=== PATIENT | female | born 1935 | race Hispanic/Latino ===

== ENCOUNTER 2018-01-08 04:24 | Inpatient (IN) | payer MEDICARE ==
--- NOTE | 2018-01-08 04:39 | C.PDOC ---
History Of Present Illness 82-year-old female brought in by ambulance for complaints of SOB for 3 days. Patient also reports chest pain that began 45 minutes prior to arrival. He has a PMHx of A Fib. On arrival patient is speaking in 4-5 word sentences. Otherwise no palpitations, dizziness, weakness, visual changes, or other complaints. Time Seen by Provider: 01/08/18 04:34 Chief Complaint (Nursing): Chest Pain History Per: Patient History/Exam Limitations: no limitations Onset/Duration Of Symptoms: Days Current Symptoms Are (Timing): Still Present Severity: Moderate Pain Scale Rating Of: 5 Quality: "Pain" Associated Symptoms: Dyspnea, Diaphoresis Modifying Factors: None Additional History Per: EMS Past Medical History Reviewed: Historical Data, Nursing Documentation, Vital Signs Vital Signs: Last Vital Signs Temp 98.4 F 01/08/18 04:35 Pulse 98 H 01/08/18 06:25 Resp 26 H 01/08/18 06:25 BP 131/74 01/08/18 06:25 Pulse Ox 96 01/08/18 06:25 - Medical History PMH: Atrial Fibrillation, HTN, Hypothyroidism - [facility] ANT NASAL PACK FOR EPIST (04/01/14) Family History: States: No Known Family Hx - Social History Hx Tobacco Use: No Hx Alcohol Use: No Hx Substance Use: No - Immunization History Hx Tetanus Toxoid Vaccination: No Hx Influenza Vaccination: Yes Hx Pneumococcal Vaccination: No Review Of Systems Constitutional: Negative for: Fever, Chills Eyes: Negative for: Vision Change Cardiovascular: Positive for: Chest Pain. Negative for: Palpitations Respiratory: Positive for: Shortness of Breath Gastrointestinal: Negative for: Nausea, Vomiting Neurological: Negative for: Weakness, Dizziness Physical Exam - Physical Exam Appears: In Acute Distress (appears in 5/10 discomfort) Skin: Warm, Diaphoretic (mildly) Head: Normacephalic Eye(s): bilateral: Normal Inspection Oral Mucosa: Moist Neck: Trachea Midline, Supple Chest: Symmetrical Cardiovascular: Rhythm Regular (but tachycardic) Respiratory: No Rales, Rhonchi (scattered), No Wheezing Gastrointestinal/Abdominal: Soft, No Tenderness, No Distention Extremity: Bilateral: Atraumatic, Normal ROM Pulses: Left Dorsalis Pedis: Normal, Right Dorsalis Pedis: Normal Neurological/Psych: Oriented x3 Gait: Steady ED Course And Treatment - Laboratory Results Result Diagrams: 01/08/18 04:49 01/08/18 04:49 ECG: Interpreted By Me, Viewed By Me ECG Rhythm: Sinus Tachycardia (120), PVC, Nonspecific Changes O2 Sat by Pulse Oximetry: 95 Pulse Ox Interpretation: Normal - Radiology CXR: Interpreted by Me, Viewed By Me Progress Note: Ordered labs, EKG, and CXR. Patient given duonebs and 325 mg Aspirin PO. Critical Care Time - Critical Care Note Total Time (in mins): 30 Documented critical care: time excludes all time spent performing seperately billable procedures. Disposition Discussed With Dr.: Della Restrepo Comment: accepted the pt on h er service and took over the care at 6 AM Doctor Will See Patient In The: Hospital Counseled Patient/Family Regarding: Studies Performed, Diagnosis - Disposition Disposition: HOSPITALIZED Disposition Time: 04:40 Condition: GUARDED Forms: [facility] (Spanish) - Clinical Impression Clinical Impression: Chest pain, Pulmonary edema, COPD exacerbation - Scribe Statement The provider has reviewed the documentation as recorded by the Scribe (Missy Tracy) Provider Attestation: All medical record entries made by the Scribe were at my direction and personally dictated by me. I have reviewed the chart and agree that the record accurately reflects my personal performance of the history, physical exam, medical decision making, and the department course for this patient. I have also personally directed, reviewed, and agree with the discharge instructions and disposition. Physician Patient Turnover Patient Signed Over To: Theresa Rosas Handoff Comments: pending call back from dr glover and admit Decision To Admit - Pt Status Changed To: Hospital Disposition Of: Inpatient - Admit Certification Admit to Inpatient:: After my assessment, the patient will require hospitalization for at least two midnights. This is because of the severity of symptoms shown, intensity of services needed, and/or the medical risk in this patient being treated as an outpatient. - InPatient: Physician Admission Certification: I certify that this patient requires 2 or more midnights of care for the following reason:: After my assessment, the patient will require hospitalization for at least two midnights. This is because of the severity of symptoms shown, intensity of services needed, and/or the medical risk in this patient being treated as an outpatient. - . Bed Request Type: Telemetry Admitting Physician: Della Restrepo Patient Diagnosis: Chest pain, Pulmonary edema, COPD exacerbation
[2018-01-08] MEDS ORDERED: Aspirin 325 mg EC Tablets PO STA (04:40)
[2018-01-08] MEDS: Albuterol-Ipratrop 3 mg / 0.5 (3 ml) UD IH SCH ×3 (04:45→05:06)
[2018-01-08 04:46] VITALS: BMI 27.4
[2018-01-08] MEDS ORDERED: Aspirin 325 mg EC Tablets PO ONE (04:47)
[2018-01-08] MEDS ORDERED: Albuterol-Ipratrop 3 mg / 0.5 (3 ml) UD ONE ×3 (04:49)
[2018-01-08 04:52] LABS: BASO # 0.1 K/uL (0.0-0.2); BASO % 0.4 % (0.0-2.0); EOS # 0.1 K/uL (0.0-0.7); EOS % 0.4 % (0.0-4.0); HEMOGLOBIN 13.3 g/dL (11.0-16.0); LYMPH # 0.2 K/uL (1.0-4.3); LYMPH % 1.5 % (20.0-40.0); MEAN CELL VOLUME 87.3 fL (81.0-99.0); MEAN CORPUSCULAR HEMOGLOBIN 29.5 pg (27.0-31.0); MEAN CORPUSCULAR HGB CONC 33.8 g/dL (33.0-37.0); MEAN PLATELET VOLUME 8.6 fL (7.2-11.7); MONO # 0.8 K/uL (0.0-0.8); MONO % 5.5 % (0.0-10.0); NEUT # 13.8 K/uL (1.8-7.0); NEUT % 92.2 % (50.0-75.0); PLATELET COUNT 166 K/uL (130-400); RBC 4.52 Mil/uL (3.80-5.20); RED CELL DISTRIBUTION WIDTH 16.3 % (11.5-14.5)
[2018-01-08 05:05] LABS: ALB/GLOB RATIO 1.1 (1.0-2.1); ALBUMIN 4.1 g/dL (3.5-5.0); ALT/SGPT 63 U/L (9-52); AST/SGOT 51 U/L (14-36); BLOOD UREA NITROGEN 20 mg/dL (7-17); CALCIUM 9.1 mg/dl (8.6-10.4); GFR AFRICAN-AMERICAN > 60; GFR NON-AFRICAN AMERICAN > 60
[2018-01-08 05:17] LABS: B-TYPE NATRIURETIC PEPTIDE 2370 pg/mL (0-900)
[2018-01-08 05:24] LABS: INR 5.4
[2018-01-08 05:36] LABS: PROTHROMBIN TIME 59.5 SECONDS (9.7-12.2)
[2018-01-08] MEDS ORDERED: Piperacillin/Tazobact 3.375 gm 100 ML IVPB STA (06:04)
[2018-01-08] MEDS ORDERED: Piperacillin/Tazobact 3.375 gm 100 ML IVPB ONE (06:17)
[2018-01-08 06:19] LABS: ABG ALLEN TEST POS; ARTERIAL BLOOD GAS HCO3 21.7 mmol/L (21-28); ARTERIAL BLOOD GAS O2 SAT 96.1 % (95-98); ARTERIAL BLOOD GAS PCO2 32 mm/Hg (35-45); ARTERIAL BLOOD GAS PO2 69 mm/Hg (80-100); ARTERIAL BLOOD GAS TCO2 20.8 mmol/L (22-28)
[2018-01-08 06:25] LABS: BANDS 2 % (0-2); LYMPHOCYTE 4 % (20-40); MONOCYTE 6 % (0-10); NEUTROPHIL 88 % (50-75); PLATELET ESTIMATE NORMAL (NORMAL); TOTAL CELLS COUNTED 100
[2018-01-08 07:09] LABS: SQUAMOUS EPITHIAL 1 /hpf (0-5); URINE BILIRUBIN NEGATIVE (NEGATIVE); URINE BLOOD 1+ (NEGATIVE); URINE CLARITY Clear (Clear); URINE COLOR Straw (YELLOW); URINE GLUCOSE (UA) NORMAL (Normal); URINE LEUKOCYTE ESTERASE NEG Leu/uL (Negative); URINE PROTEIN NEGATIVE (NEGATIVE); URINE UROBILINOGEN NORMAL mg/dL (0.2-1.0)
--- NOTE | 2018-01-08 08:51 | RAD ---
Date of service: 01/08/2018 PROCEDURE: CHEST RADIOGRAPH, 1 VIEW HISTORY: chest pain COMPARISON: None available. FINDINGS: LUNGS: The lungs are hyperinflated and there is peribronchial thickening with chronic changes in both lungs. There is patchy airspace disease in the right lower lobe. There is also moderate pulmonary venous congestion and mild interstitial pulmonary edema. PLEURA: No pneumothorax or pleural fluid seen. CARDIOVASCULAR: The heart is enlarged. OSSEOUS STRUCTURES: No significant abnormalities. VISUALIZED UPPER ABDOMEN: Normal. OTHER FINDINGS: None. IMPRESSION: COPD. No active pulmonary disease. Patchy airspace disease in the right lower lobe may represent subsegmental atelectasis or developing pneumonia. Follow-up is advised. Component of mild congestive heart failure.
[2018-01-08] MEDS: Levothyroxine 75 MCG TAB PO SCH (11:40)
--- NOTE | 2018-01-08 12:25 | CP.PCM.HP ---
History of Present Illness - History of Present Illness History of Present Illness: This is an 82 y/o female well-known to me with history of hypertension, atrial flutter-fibrillation, hypothyroidism who was brought to the ER because of shortness of breath and vague chest discomfort. Patient claims that she has been coughing whitish phlegm lately and she gradually developed increasing shortness of breath. She reports that she gets short of breath walking a few steps inside the house and has slept on the recliner on the night prior to admission. She has a pulse oximeter and reports that it registered 77% O2 sat just before she went to the ER. She went to an urgent care center a few times for urinary tract infection and was lately given macrodantin for UTI. She denies any fever, nausea, vomiting, palpitations, dizziness or syncope. Present on Admission - Present on Admission Any Indicators Present on Admission: No History of DVT/PE: No History of Uncontrolled Diabetes: No Urinary Catheter: No Decubitus Ulcer Present: No Review of Systems - Review of Systems Systems not reviewed;Unavailable: Respiratory Distress - Constitutional Constitutional: Fatigue - Cardiovascular Cardiovascular: Chest Pain with Activity, Dyspnea on Exertion, Irregular Heart Rhythm, Orthopnea - Respiratory Respiratory: Cough, Dyspnea on Exertion, Chest Congestion - Reproductive: Female Reproductive:Female: As Per HPI - Integumentary Integumentary: As Per HPI - Neurological Neurological: As Per HPI Past Patient History - Past Social History Smoking Status: Never Smoked Chewing Tobacco Use: No Cigar Use: No Alcohol: Social Drugs: Denies - CARDIAC Hx Atrial Fibrillation: Yes Hx Hypertension: Yes - ENDOCRINE/METABOLIC Hx Hypothyroidism: Yes - PSYCHIATRIC Hx Substance Use: No Meds Allergies/Adverse Reactions: Allergies Allergy/AdvReac Type Severity Reaction Status Date / Time chocolate flavor Allergy Intermediate Verified 01/08/18 04:43 peanut Allergy Intermediate Verified 01/08/18 04:43 Physical Exam - Constitutional Appears: No Acute Distress - Head Exam Head Exam: NORMAL INSPECTION - Eye Exam Eye Exam: Normal appearance - ENT Exam ENT Exam: Mucous Membranes Moist - Neck Exam Neck exam: Positive for: Normal Inspection - Respiratory Exam Respiratory Exam: Rales, Rhonchi - Cardiovascular Exam Cardiovascular Exam: Irregular Rhythm, +S1 - GI/Abdominal Exam GI & Abdominal Exam: Normal Bowel Sounds, Soft - Extremities Exam Extremities exam: Positive for: normal inspection, pedal pulses present - Neurological Exam Neurological exam: Alert, CN II-XII Intact, Oriented x3 - Psychiatric Exam Psychiatric exam: Normal Affect, Normal Mood - Skin Skin Exam: Dry, Intact, Normal Color, Warm Results - Vital Signs Recent Vital Signs: Last Vital Signs Temp 97.9 F 01/08/18 11:30 Pulse 94 H 01/08/18 11:30 Resp 20 01/08/18 11:30 BP 113/70 01/08/18 11:30 Pulse Ox 94 L 01/08/18 11:30 - Labs Result Diagrams: 01/09/18 06:25 01/09/18 06:25 Labs: Laboratory Results - last 24 hr 01/08/18 01/08/18 01/08/18 04:40 04:49 04:49 WBC 15.0 H D RBC 4.52 Hgb 13.3 Hct 39.4 MCV 87.3 MCH 29.5 MCHC 33.8 RDW 16.3 H Plt Count 166 MPV 8.6 Neut % (Auto) 92.2 H Lymph % (Auto) 1.5 L [place] % (Auto) 5.5 Eos % (Auto) 0.4 Baso % (Auto) 0.4 Neut # (Auto) 13.8 H Lymph # (Auto) 0.2 L [place] # (Auto) 0.8 Eos # (Auto) 0.1 Baso # (Auto) 0.1 Neutrophils % (Manual) 88 H Band Neutrophils % 2 Lymphocytes % (Manual) 4 L Monocytes % (Manual) 6 Platelet Estimate Normal PT 59.5 H* INR 5.4 APTT 46 H Puncture Site pCO2 pO2 HCO3 ABG pH ABG Total CO2 ABG O2 Saturation ABG Base Excess Michael Test ABG Potassium A-a O2 Difference Respiratory Index Glucose Lactate Vent Mode FiO2 Inspiratory BiPAP Expiratory BiPAP Sodium Potassium Chloride Carbon Dioxide Anion Gap BUN Creatinine Est GFR ( Amer) Est GFR (Non-Af Amer) Random Glucose Calcium Total Bilirubin AST ALT Alkaline Phosphatase Troponin I NT-Pro-B Natriuret Pep Total Protein Albumin Globulin Albumin/Globulin Ratio TSH 3rd Generation Arterial Blood Potassium Urine Color Straw Urine Clarity Clear Urine pH 5.0 Ur Specific [place] 1.009 Urine Protein Negative Urine Glucose (UA) Normal Urine Ketones 1+ H Urine Blood 1+ H Urine Nitrate Negative Urine Bilirubin Negative Urine Urobilinogen Normal Ur Leukocyte Esterase Neg Urine WBC (Auto) 5 Urine RBC (Auto) 10 H Ur Squamous Epith Cells 1 01/08/18 01/08/18 04:49 06:15 WBC RBC Hgb Hct MCV MCH MCHC RDW Plt Count MPV Neut % (Auto) Lymph % (Auto) [place] % (Auto) Eos % (Auto) Baso % (Auto) Neut # (Auto) Lymph # (Auto) [place] # (Auto) Eos # (Auto) Baso # (Auto) Neutrophils % (Manual) Band Neutrophils % Lymphocytes % (Manual) Monocytes % (Manual) Platelet Estimate PT INR APTT Puncture Site Rr pCO2 32 L pO2 69 L HCO3 21.7 ABG pH 7.40 ABG Total CO2 20.8 L ABG O2 Saturation 96.1 ABG Base Excess -4.0 L Michael Test Pos ABG Potassium 3.2 L A-a O2 Difference 176.0 Respiratory Index 2.6 Glucose 120 H Lactate 0.9 Vent Mode Bipap FiO2 40.0 Inspiratory BiPAP 10 Expiratory BiPAP 5 Sodium 141 139.0 Potassium 3.8 Chloride 107 108.0 H Carbon Dioxide 22 Anion Gap 17 BUN 20 H Creatinine 0.9 Est GFR ( Amer) > 60 Est GFR (Non-Af Amer) > 60 Random Glucose 110 H Calcium 9.1 Total Bilirubin 2.1 H AST 51 H ALT 63 H Alkaline Phosphatase 99 Troponin I < 0.0120 NT-Pro-B Natriuret Pep 2370 H Total Protein 7.9 Albumin 4.1 Globulin 3.8 Albumin/Globulin Ratio 1.1 TSH 3rd Generation 0.70 Arterial Blood Potassium 3.2 L Urine Color Urine Clarity Urine pH Ur Specific [place] Urine Protein Urine Glucose (UA) Urine Ketones Urine Blood Urine Nitrate Urine Bilirubin Urine Urobilinogen Ur Leukocyte Esterase Urine WBC (Auto) Urine RBC (Auto) Ur Squamous Epith Cells Assessment & Plan (1) Shortness of breath Assessment and Plan: CHF vs exacerbation of COPD. Despite non-smoking history, she claims she has been exposed to second-hand smoke. CXR also shows RLL infiltrate and mild vascular congestion. Started empirically on IV antibiotic and given IV lasix. Status: Acute (2) CHF (congestive heart failure) Assessment and Plan: CXR shows mild vascular congestion, ProBNP is also high. IV lasix given and seems to have felt better with it Status: Acute (3) COPD exacerbation Assessment and Plan: CXR also shows emphysematous changes and RLL infiltrate that may have caused exacerbation. Status: Acute (4) Chest pain Assessment and Plan: R/O ACS. Requested serial enzymes and EKG. Will get echocardiogram also and may consider cardiac cath if the patient agrees (She has been refusing past suggestions for stress test and cardiac cath in the past.) Status: Acute (5) Coagulation defect Assessment and Plan: PT/INR prolonged at this time. Coumadin on hold. To monitor PT/INR. Status: Acute (6) Chronic atrial fibrillation Assessment and Plan: In controlled rate right now. She has also refused anticoagulation until lately and prefers Coumadin to the newer anticoagulants available. Status: Chronic (7) Hypertension Assessment and Plan: Patient on medications and seems under control at this time. Status: Chronic (8) Hypothyroidism Assessment and Plan: continue levothyroxine. To check TSH. Status: Chronic Decision To Admit - Pt Status Changed To: Hospital Disposition Of: Inpatient - Admit Certification Admit to Inpatient:: After my assessment, the patient will require hospitalization for at least two midnights. This is because of the severity of symptoms shown, intensity of services needed, and/or the medical risk in this patient being treated as an outpatient. - InPatient: Physician Admission Certification:: After my assessment, the patient will require hospitalization for at least two midnights. This is because of the severity of symptoms shown, intensity of services needed, and/or the medical risk in this patient being treated as an outpatient - . Bed Request Type: Telemetry Admitting Physician: Della Restrepo
--- NOTE | 2018-01-08 12:36 | CARD ---
APPROVED REPORT Date of service: 01/08/2018 EKG Measurement Heart [id number] <Conclusion> Sinus tachycardia with 1st degree AV block with occasional premature ventricular complexes Nonspecific ST and T wave abnormality Abnormal ECG
[2018-01-08] MEDS: cefTRIAXone IV 1 gm in Dextros 50 ML IVPB SCH (12:45)
[2018-01-08 13:20] LABS: CK-MB 0.56 ng/mL (0.0-3.38)
[2018-01-08] MEDS: Albuterol-Ipratrop 3 mg / 0.5 (3 ml) UD INH SCH ×2 (13:31→20:04)
--- NOTE | 2018-01-08 15:48 | CP.PCM.CON ---
History of Present Illness - History of Present Illness History of Present Illness: 82 year old female patient with past medical history of hypertension, chronic atrial fibrillation and hypothyroidism presented to the ED with chief complaint of shortness of breath. Patient reports that symptoms started a few days ago but they got worst yesterday with exertion. Patient mentions that she started to hyperventilate and cough, decided to call the EMS. Patient reports that a few days ago she visited an urgent care near her home for a UTI which she received antibiotics for. Patient was seen and examined at bed side. Patient found in no acute distress. Patient reports shortness of breath, chest pain with exertion and a dry cough. Patient denies headaches, nausea, vomiting and diarrhea. Patient's chest x-ray showed COPD. Patchy airspace disease in the right lower lobe may represent subsegmental atelectasis or developing pneumonia. ROS: Constitutional: Patient denies fever and chills. Cardiovascular: Patient reports chest pain. Denies palpitations Respiratory: Patient reports shotness of breath, dry cough. Gastrointestinal: Patient denies nausea, vomiting, diarrhea. Neurological: AAO X3, normal speech PMHx: hypertension, chronic atrial fibrillation, hypothyroidism Social History: Patient denies smoking and alcohol consumption Medications - Albuterol/ Ipratropium 3ml INH RQ6 - Amlodipine Besylate 5 mg PO Daily - Ceftriaxone Sodium 50 mls @ 100 mls/ hr IVPB Q24H - Levothryroxine Sodium 75 mcg PO Daily - Losartan Potassium 50 mg PO Daily Physical Exam HEENT: Atraumatic, normocephalic, mucuous membranes moist Respiratory: Decreased breath sounds bilaterally. Positive for rales. Negative for wheezing and rhonchi. Cardiovascular: +S1/S2, regular rate and irregular rhythm Extremities: Bilateral lower extremity edema Neurological: Alert, awake, oriented. Assessment 82 year old female patient with past medical history of hypertension, chronic atrial fibrillation and hypothyroidism presented to the ED with chief complaint of shortness of breath; patient's presentation consistent with right lower lobe pneumonia. 1. Pneumonia Status: Acute - Albuterol/ Ipratropium 3ml INH RQ6 - Ceftriaxone Sodium 50 mls @ 100 mls/ hr IVPB Q24H - azithromycin - Legionella mycoplasma titers 2. Hypertension Status: Chronic - Losartan Potassium 50 mg PO Daily - Amlodipine Besylate 5 mg PO Daily 3. Hypothyroidism Status: Chronic - Levothryroxine Sodium 75 mcg PO Daily Past Patient History - Past Medical History & Family History Past Medical History?: Yes - Past Social History Smoking Status: Never Smoked Chewing Tobacco Use: No Cigar Use: No Alcohol: Social Drugs: Denies - CARDIAC Hx Atrial Fibrillation: Yes Hx Hypertension: Yes - PULMONARY Hx Respiratory Disorders: No - NEUROLOGICAL Hx Neurological Disorder: No - HEENT Hx HEENT Problems: No - RENAL Hx Chronic Kidney Disease: No - ENDOCRINE/METABOLIC Hx Hypothyroidism: Yes - HEMATOLOGICAL/ONCOLOGICAL Hx Blood Disorders: No - INTEGUMENTARY Hx Dermatological Problems: No - MUSCULOSKELETAL/RHEUMATOLOGICAL Hx Musculoskeletal Disorders: No Hx Falls: No - GASTROINTESTINAL Hx Gastrointestinal Disorders: No - GENITOURINARY/GYNECOLOGICAL Hx Genitourinary Disorders: No - PSYCHIATRIC Hx Substance Use: No - SURGICAL HISTORY Hx Surgeries: Yes Hx Hysterectomy: Yes - ANESTHESIA Hx Anesthesia: Yes Hx Anesthesia Reactions: No Hx Malignant Hyperthermia: No Has any member of the family had a problem w/ anesthesia?: No Meds Allergies/Adverse Reactions: Allergies Allergy/AdvReac Type Severity Reaction Status Date / Time chocolate flavor Allergy Intermediate Verified 01/08/18 04:43 peanut Allergy Intermediate Verified 01/08/18 04:43 - Medications Medications: Current Medications Albuterol/Ipratropium (Duoneb 3 Mg/0.5 Mg (3 Ml) Ud) 3 ml INH RQ6 [facility] Last Admin: 01/08/18 13:31 Dose: 3 ml Amlodipine Besylate (Norvasc) 5 mg PO DAILY [facility] Ceftriaxone Sodium (Rocephin Iv 1 Gm Duplex) 50 mls @ 100 mls/hr IVPB Q24H [facility] PRN Reason: Protocol Last Admin: 01/08/18 12:45 Dose: 100 mls/hr Levothyroxine Sodium (Synthroid) 75 mcg PO DAILY@0630 [facility] Last Admin: 01/08/18 11:40 Dose: 75 mcg Losartan Potassium (Cozaar) 50 mg PO DAILY [facility] Results - Vital Signs Recent Vital Signs: Last Vital Signs Temp 97.9 F 01/08/18 11:30 Pulse 105 H 01/08/18 13:39 Resp 20 01/08/18 11:30 BP 113/70 01/08/18 11:30 Pulse Ox 94 L 01/08/18 11:30 - Labs Result Diagrams: 01/08/18 04:49 01/08/18 04:49 Labs: Laboratory Results - last 24 hr 01/08/18 01/08/18 01/08/18 04:40 04:49 04:49 WBC 15.0 H D RBC 4.52 Hgb 13.3 Hct 39.4 MCV 87.3 MCH 29.5 MCHC 33.8 RDW 16.3 H Plt Count 166 MPV 8.6 Neut % (Auto) 92.2 H Lymph % (Auto) 1.5 L [place] % (Auto) 5.5 Eos % (Auto) 0.4 Baso % (Auto) 0.4 Neut # (Auto) 13.8 H Lymph # (Auto) 0.2 L [place] # (Auto) 0.8 Eos # (Auto) 0.1 Baso # (Auto) 0.1 Neutrophils % (Manual) 88 H Band Neutrophils % 2 Lymphocytes % (Manual) 4 L Monocytes % (Manual) 6 Platelet Estimate Normal PT 59.5 H* INR 5.4 APTT 46 H Puncture Site pCO2 pO2 HCO3 ABG pH ABG Total CO2 ABG O2 Saturation ABG Base Excess Michael Test ABG Potassium A-a O2 Difference Respiratory Index Glucose Lactate Vent Mode FiO2 Inspiratory BiPAP Expiratory BiPAP Sodium Potassium Chloride Carbon Dioxide Anion Gap BUN Creatinine Est GFR ( Amer) Est GFR (Non-Af Amer) Random Glucose Calcium Total Bilirubin AST ALT Alkaline Phosphatase Total Creatine Kinase CK-MB (Mass) Troponin I NT-Pro-B Natriuret Pep Total Protein Albumin Globulin Albumin/Globulin Ratio TSH 3rd Generation Arterial Blood Potassium Urine Color Straw Urine Clarity Clear Urine pH 5.0 Ur Specific [place] 1.009 Urine Protein Negative Urine Glucose (UA) Normal Urine Ketones 1+ H Urine Blood 1+ H Urine Nitrate Negative Urine Bilirubin Negative Urine Urobilinogen Normal Ur Leukocyte Esterase Neg Urine WBC (Auto) 5 Urine RBC (Auto) 10 H Ur Squamous Epith Cells 1 01/08/18 01/08/18 01/08/18 04:49 06:15 12:23 WBC RBC Hgb Hct MCV MCH MCHC RDW Plt Count MPV Neut % (Auto) Lymph % (Auto) [place] % (Auto) Eos % (Auto) Baso % (Auto) Neut # (Auto) Lymph # (Auto) [place] # (Auto) Eos # (Auto) Baso # (Auto) Neutrophils % (Manual) Band Neutrophils % Lymphocytes % (Manual) Monocytes % (Manual) Platelet Estimate PT INR APTT Puncture Site Rr pCO2 32 L pO2 69 L HCO3 21.7 ABG pH 7.40 ABG Total CO2 20.8 L ABG O2 Saturation 96.1 ABG Base Excess -4.0 L Michael Test Pos ABG Potassium 3.2 L A-a O2 Difference 176.0 Respiratory Index 2.6 Glucose 120 H Lactate 0.9 Vent Mode Bipap FiO2 40.0 Inspiratory BiPAP 10 Expiratory BiPAP 5 Sodium 141 139.0 Potassium 3.8 Chloride 107 108.0 H Carbon Dioxide 22 Anion Gap 17 BUN 20 H Creatinine 0.9 Est GFR ( Amer) > 60 Est GFR (Non-Af Amer) > 60 Random Glucose 110 H Calcium 9.1 Total Bilirubin 2.1 H AST 51 H ALT 63 H Alkaline Phosphatase 99 Total Creatine Kinase 48 CK-MB (Mass) 0.56 Troponin I < 0.0120 < 0.0120 NT-Pro-B Natriuret Pep 2370 H Total Protein 7.9 Albumin 4.1 Globulin 3.8 Albumin/Globulin Ratio 1.1 TSH 3rd Generation 0.70 Arterial Blood Potassium 3.2 L Urine Color Urine Clarity Urine pH Ur Specific [place] Urine Protein Urine Glucose (UA) Urine Ketones Urine Blood Urine Nitrate Urine Bilirubin Urine Urobilinogen Ur Leukocyte Esterase Urine WBC (Auto) Urine RBC (Auto) Ur Squamous Epith Cells
--- NOTE | 2018-01-08 16:07 | CARD ---
APPROVED REPORT Date of service: 01/08/2018 EXAM: Two-dimensional and M-mode echocardiogram with Doppler and color Doppler. Other Information Quality : AverageRhythm : NSR INDICATION Chest Pain Congestive Heart Failure COPD RISK FACTORS Hypertension Hyperlipidemia M-Mode DIMENSIONS RVDd1.34 (2.1-3.2cm)Left Atrium (MM)3.49 (2.5-4.0cm) IVSd0.67 (0.7-1.1cm)Aortic Root2.70 (2.2-3.7cm) LVDd4.74 (4.0-5.6cm)Aortic Cusp Exc.1.31 (1.5-2.0cm) PWd0.91 (0.7-1.1cm)FS (%) 44 % LVDs2.67 (2.0-3.8cm)LVEF (%)75 (>50%) Aortic Valve AoV Peak Diuzgfst902.7cm/Eduardo Peak GR.7mmHgLVOT Peak Xbxcplxi99.3cm/s Mitral Valve MV E Atvfhxms30.5cm/sMV A Aswztddq79.5cm/sE/A ratio1.8 TDI E/Lateral E'0.0E/Medial E'0.0 Tricuspid Valve TR Peak Izpuyvvh493vo/sTR Peak Gr.[id number] LEFT VENTRICLE The left ventricle is normal size. There is normal left ventricular wall thickness. The left ventricular systolic function is normal. The left ventricular ejection fraction is within the normal range. There is normal LV segmental wall motion. Diastolic dysfunction Grade II-pseudonormal filling dynamics. RIGHT VENTRICLE The right ventricle is mildly to moderately dilated. The right ventricular systolic function is normal. ATRIA The left atrium is mildly dilated. The right atrium is moderately dilated. The interatrial septum is intact with no evidence for an atrial septal defect. AORTIC VALVE The aortic valve is normal in structure. There is trace aortic regurgitation. MITRAL VALVE The mitral valve is normal in structure. Mitral regurgitation is mild. TRICUSPID VALVE The tricuspid valve is normal in structure. There is moderate tricuspid regurgitation. Right ventricular systolic pressure is estimated at 46 mmHg. There is moderate pulmonary hypertension. PULMONIC VALVE The pulmonic valve is not well visualized. GREAT VESSELS The aortic root is normal in size. The IVC is normal in size and collapses >50% with inspiration. PERICARDIAL EFFUSION There is no pericardial effusion. <Conclusion> The left ventricular systolic function is normal. There is normal LV segmental wall motion. Diastolic dysfunction Grade II-pseudonormal filling dynamics. The right ventricle is mildly to moderately dilated. The right ventricular systolic function is normal. Mild to moderate bi-atrial dilatation. There is trace aortic regurgitation. Mild mitral regurgitation. There is moderate tricuspid regurgitation. Right ventricular systolic pressure is estimated at - 46 mmHg compatible with moderate pulmonary hypertension. There is no pericardial effusion.
[2018-01-08 18:14] LABS: LEGIONELLA AG URINE NEGATIVE (NEGATIVE)
[2018-01-08 20:34] LABS: MYCOPLASMA PNEUMONIAE IGM NEGATIVE (NEGATIVE)
[2018-01-08 20:34] LABS: CK-MB 0.51 ng/mL (0.0-3.38)
[2018-01-09] MEDS: Albuterol-Ipratrop 3 mg / 0.5 (3 ml) UD INH SCH ×4 (01:26→20:02)
[2018-01-09] MEDS: Levothyroxine 75 MCG TAB PO SCH (05:31)
[2018-01-09 06:36] LABS: BASO % 0.5 % (0.0-2.0); EOS # 0.2 K/uL (0.0-0.7); EOS % 2.2 % (0.0-4.0); HEMOGLOBIN 12.4 g/dL (11.0-16.0); LYMPH # 0.6 K/uL (1.0-4.3); MEAN CELL VOLUME 87.5 fL (81.0-99.0); MEAN CORPUSCULAR HGB CONC 34.2 g/dL (33.0-37.0); MEAN PLATELET VOLUME 8.9 fL (7.2-11.7); MONO # 0.8 K/uL (0.0-0.8); NEUT # 6.1 K/uL (1.8-7.0); NEUT % 79.3 % (50.0-75.0); NRBC % 0.1 % (0.0-2.0); PLATELET COUNT 131 K/uL (130-400); RBC 4.14 Mil/uL (3.80-5.20); RED CELL DISTRIBUTION WIDTH 16.8 % (11.5-14.5); WHITE BLOOD COUNT 7.7 K/uL (4.8-10.8)
[2018-01-09 06:51] LABS: INR 4.8
[2018-01-09 07:04] LABS: PROTHROMBIN TIME 52.5 SECONDS (9.7-12.2)
[2018-01-09 07:51] LABS: ALB/GLOB RATIO 1.1 (1.0-2.1); ALBUMIN 3.6 g/dL (3.5-5.0); ALT/SGPT 79 U/L (9-52); AST/SGOT 77 U/L (14-36); BLOOD UREA NITROGEN 21 mg/dL (7-17); CALCIUM 9.1 mg/dl (8.6-10.4); GFR AFRICAN-AMERICAN > 60; GFR NON-AFRICAN AMERICAN 53
[2018-01-09 08:32] LABS: BANDS 1 % (0-2); LYMPHOCYTE 8 % (20-40); MONOCYTE 9 % (0-10); NEUTROPHIL 82 % (50-75); PLATELET ESTIMATE NORMAL (NORMAL); TOTAL CELLS COUNTED 100
[2018-01-09 08:33] LABS: TOXIC GRANULATION PRESENT
[2018-01-09] MEDS: cefTRIAXone IV 1 gm in Dextros 50 ML IVPB SCH (13:05)
--- NOTE | 2018-01-09 14:33 | CP.PCM.PN ---
Subjective - Date & Time of Evaluation Date of Evaluation: 01/09/18 Time of Evaluation: 11:30 - Subjective Subjective: Patient seen and examined Still complaining of shortness of breath on exertion Denies cough, denies fever or chills, denies chest pain Objective - Vital Signs/Intake and Output Vital Signs (last 24 hours): Temp Pulse Resp BP Pulse Ox 97.5 F L 101 H 20 95/56 L 97 01/09/18 07:37 01/09/18 09:21 01/09/18 07:37 01/09/18 09:21 01/09/18 07:37 - Medications Medications: Current Medications Albuterol/Ipratropium (Duoneb 3 Mg/0.5 Mg (3 Ml) Ud) 3 ml INH RQ6 [facility] Last Admin: 01/09/18 13:41 Dose: 3 ml Amlodipine Besylate (Norvasc) 5 mg PO DAILY [facility] Last Admin: 01/09/18 09:23 Dose: Not Given Azithromycin (Zithromax) 500 mg PO DAILY [facility] PRN Reason: Protocol Last Admin: 01/09/18 09:22 Dose: 500 mg Diazepam (Valium) 5 mg PO HS [facility] Ceftriaxone Sodium (Rocephin Iv 1 Gm Duplex) 50 mls @ 100 mls/hr IVPB Q24H [facility] PRN Reason: Protocol Last Admin: 01/09/18 13:05 Dose: 100 mls/hr Levothyroxine Sodium (Synthroid) 75 mcg PO DAILY@0630 [facility] Last Admin: 01/09/18 05:31 Dose: 75 mcg Losartan Potassium (Cozaar) 50 mg PO DAILY [facility] Last Admin: 01/09/18 09:23 Dose: Not Given - Labs Labs: 01/09/18 06:25 01/09/18 06:25 PT 52.5 SECONDS (9.7-12.2) H* D 01/09/18 06:25 INR 4.8 01/09/18 06:25 APTT 46 SECONDS (21-34) H 01/08/18 04:49 - Head Exam Head Exam: ATRAUMATIC, NORMOCEPHALIC - ENT Exam ENT Exam: Mucous Membranes Moist - Neck Exam Neck Exam: Normal Inspection - Respiratory Exam Respiratory Exam: Rales - Cardiovascular Exam Cardiovascular Exam: REGULAR RHYTHM - GI/Abdominal Exam GI & Abdominal Exam: Soft, Normal Bowel Sounds - Extremities Exam Extremities Exam: Normal Inspection - Neurological Exam Neurological Exam: Alert, Oriented x3 Assessment and Plan (1) Pneumonia Assessment & Plan: continue IV antibiotics Continue nebulizer treatment Follow-up culture and sensitivity ABG room air and 6 minute walk test Coumadin on hold, follow-up PT/INR Monitor liver function test and stop azithromycin if LFTs continue to increase Status: Acute (2) COPD exacerbation Status: Acute
--- NOTE | 2018-01-09 18:24 | CP.PCM.PN ---
Subjective - Date & Time of Evaluation Date of Evaluation: 01/09/18 Time of Evaluation: 06:00 - Subjective Subjective: patient now in atrial flutter with varying block denies any dizziness, chest pain. Short of breath with exertion otherwise seems comfortbale. Pulmonary consult noted and appreciated. Confirmed the pneumonia and on IV Rocephin and Azithromycin at this time Echocardiogram done- biatrial dilatation, R>L,enlarged RV, normal LV, Normal LVEF, mod TR, mild TR, traceAR Objective - Vital Signs/Intake and Output Vital Signs (last 24 hours): Temp Pulse Resp BP Pulse Ox 97.6 F 97 H 20 100/55 L 95 01/09/18 15:34 01/09/18 15:34 01/09/18 15:34 01/09/18 15:34 01/09/18 15:34 - Medications Medications: Current Medications Albuterol/Ipratropium (Duoneb 3 Mg/0.5 Mg (3 Ml) Ud) 3 ml INH RQ6 [facility] Last Admin: 01/09/18 13:41 Dose: 3 ml Azithromycin (Zithromax) 500 mg PO DAILY [facility] PRN Reason: Protocol Last Admin: 01/09/18 09:22 Dose: 500 mg Diazepam (Valium) 5 mg PO HS [facility] Ceftriaxone Sodium (Rocephin Iv 1 Gm Duplex) 50 mls @ 100 mls/hr IVPB Q24H [facility] PRN Reason: Protocol Last Admin: 01/09/18 13:05 Dose: 100 mls/hr Levothyroxine Sodium (Synthroid) 75 mcg PO DAILY@0630 [facility] Last Admin: 01/09/18 05:31 Dose: 75 mcg Losartan Potassium (Cozaar) 50 mg PO DAILY [facility] Last Admin: 01/09/18 09:23 Dose: Not Given - Labs Labs: 01/09/18 06:25 01/09/18 06:25 PT 52.5 SECONDS (9.7-12.2) H* D 01/09/18 06:25 INR 4.8 01/09/18 06:25 APTT 46 SECONDS (21-34) H 01/08/18 04:49 - Constitutional Appears: No Acute Distress - Eye Exam Eye Exam: Normal appearance - ENT Exam ENT Exam: Normal Exam - Respiratory Exam Respiratory Exam: Clear to Ausculation Bilateral - Cardiovascular Exam Cardiovascular Exam: Irregular Rhythm, +S1, +S2 - GI/Abdominal Exam GI & Abdominal Exam: Soft, Normal Bowel Sounds - Extremities Exam Extremities Exam: Normal Inspection - Psychiatric Exam Psychiatric exam: Normal Affect, Normal Mood Assessment and Plan (1) Pneumonia Assessment & Plan: CXR shows RLL infiltrate. On IV antibiotics. WBC count lower and back to normal today. Status: Acute (2) Atrial fibrillation and flutter Assessment & Plan: Was in atrial fib yesterday. Now in atrial flutter with varying block. Denies any symptoms from it. Will get EP evaluation. Consult requested Status: Acute (3) Shortness of breath Assessment & Plan: CXR showing RLL Infiltrate consistent with pneumonia Echocardiogram shows normal LVEF and mild to moderate pulmonary hypertension. Status: Resolved (4) Coagulation defect Assessment & Plan: INR still elevated. Continue to hold Warfarin. Check PT/INR am Status: Acute (5) Hypertension Assessment & Plan: trending down. Will d/c Amlodipine and monitor BP Status: Chronic (6) CHF (congestive heart failure) Assessment & Plan: patient feeling better and breathing better. Echocardiogram noted- normal EF, no segmental wall motion abnormality, dilated atria Status: Resolved (7) Chest pain Assessment & Plan: serial enzymes- wnl. no further chest pains. Status: Resolved (8) Hypothyroidism Assessment & Plan: to check TSH Status: Chronic
[2018-01-10] MEDS: Albuterol-Ipratrop 3 mg / 0.5 (3 ml) UD INH SCH ×4 (01:28→19:48)
[2018-01-10] MEDS: Levothyroxine 75 MCG TAB PO SCH (06:00)
[2018-01-10 07:10] LABS: BASO % 0.6 % (0.0-2.0); EOS # 0.4 K/uL (0.0-0.7); HEMOGLOBIN 12.3 g/dL (11.0-16.0); LYMPH # 0.8 K/uL (1.0-4.3); LYMPH % 10.8 % (20.0-40.0); MEAN CELL VOLUME 87.2 fL (81.0-99.0); MEAN CORPUSCULAR HEMOGLOBIN 30.4 pg (27.0-31.0); MEAN CORPUSCULAR HGB CONC 34.9 g/dL (33.0-37.0); MEAN PLATELET VOLUME 8.9 fL (7.2-11.7); MONO # 0.9 K/uL (0.0-0.8); MONO % 12.6 % (0.0-10.0); NRBC % 0.1 % (0.0-2.0); RBC 4.05 Mil/uL (3.80-5.20); RED CELL DISTRIBUTION WIDTH 16.9 % (11.5-14.5); WHITE BLOOD COUNT 7.2 K/uL (4.8-10.8)
[2018-01-10 07:25] LABS: INR 3.1; PROTHROMBIN TIME 33.5 SECONDS (9.7-12.2)
[2018-01-10 07:37] LABS: ALB/GLOB RATIO 1.1 (1.0-2.1); ALBUMIN 3.5 g/dL (3.5-5.0); ALT/SGPT 74 U/L (9-52); AST/SGOT 56 U/L (14-36); BLOOD UREA NITROGEN 20 mg/dL (7-17); GFR AFRICAN-AMERICAN > 60; GFR NON-AFRICAN AMERICAN > 60
[2018-01-10] MEDS ORDERED: Metoprolol Succinate 50 mg XL Tab PO SCH (10:15)
--- NOTE | 2018-01-10 11:34 | CARD ---
APPROVED REPORT Date of service: 01/09/2018 EKG Measurement Heart [id number] P88 [id number] <Conclusion> Atrial flutter with variable AV block Abnormal ECG
[2018-01-10] MEDS: cefTRIAXone IV 1 gm in Dextros 50 ML IVPB SCH (12:30)
--- NOTE | 2018-01-10 15:21 | CP.PCM.PN ---
Subjective - Date & Time of Evaluation Date of Evaluation: 01/10/18 Time of Evaluation: 15:00 - Subjective Subjective: Patient oob sitting on the chair and claims to feel good; no cough, no shortness of breath noted, afebrile -still in atrial flutter with varying block -on IV antibiotics and nebulizer treatments Objective - Vital Signs/Intake and Output Vital Signs (last 24 hours): Temp Pulse Resp BP Pulse Ox 97.3 F L 119 H 20 119/75 98 01/10/18 08:37 01/10/18 14:21 01/10/18 08:37 01/10/18 08:37 01/10/18 08:37 Intake and Output: 01/10/18 01/10/18 06:59 18:59 Intake Total 400 Output Total 450 Balance -50 - Medications Medications: Current Medications Albuterol/Ipratropium (Duoneb 3 Mg/0.5 Mg (3 Ml) Ud) 3 ml INH RQ6 [facility] Last Admin: 01/10/18 14:21 Dose: 3 ml Azithromycin (Zithromax) 500 mg PO DAILY [facility] PRN Reason: Protocol Last Admin: 01/10/18 10:38 Dose: 500 mg Diazepam (Valium) 5 mg PO HS [facility] Last Admin: 01/09/18 21:31 Dose: 5 mg Ceftriaxone Sodium (Rocephin Iv 1 Gm Duplex) 50 mls @ 100 mls/hr IVPB Q24H [facility] PRN Reason: Protocol Last Admin: 01/10/18 12:30 Dose: 100 mls/hr Levothyroxine Sodium (Synthroid) 75 mcg PO DAILY@0630 [facility] Last Admin: 01/10/18 06:00 Dose: 75 mcg Losartan Potassium (Cozaar) 50 mg PO DAILY [facility] Metoprolol Succinate (Toprol Xl) 50 mg PO DAILY [facility] Last Admin: 01/10/18 10:38 Dose: 50 mg - Labs Labs: 01/10/18 07:00 01/10/18 07:00 PT 33.5 SECONDS (9.7-12.2) H* D 01/10/18 07:00 INR 3.1 D 01/10/18 07:00 APTT 46 SECONDS (21-34) H 01/08/18 04:49 - Constitutional Appears: No Acute Distress - Head Exam Head Exam: NORMAL INSPECTION - Eye Exam Eye Exam: Normal appearance - ENT Exam ENT Exam: Normal Exam - Neck Exam Neck Exam: Normal Inspection - Respiratory Exam Respiratory Exam: Clear to Ausculation Bilateral, NORMAL BREATHING PATTERN - Cardiovascular Exam Cardiovascular Exam: REGULAR RHYTHM, +S1, +S2 - GI/Abdominal Exam GI & Abdominal Exam: Normal Bowel Sounds - Extremities Exam Extremities Exam: Normal Inspection - Neurological Exam Neurological Exam: Alert, Awake, Oriented x3 Assessment and Plan (1) Pneumonia Assessment & Plan: Continue current IV antibiotics Status: Acute (2) Atrial fibrillation and flutter Assessment & Plan: remains in atrial flutter. On B natalie at this time. Rate- 90-110. Hemodynamically stable. Requesting EP consult for further eval Status: Acute (3) Coagulation defect Status: Acute (4) Hypertension Status: Chronic (5) CHF (congestive heart failure) Assessment & Plan: Clinically not in CHF anymore. Will repeat CXR and pro BNP Status: Resolved (6) Hypothyroidism Status: Chronic
--- NOTE | 2018-01-10 17:17 | CP.PCM.PN ---
Subjective - Date & Time of Evaluation Date of Evaluation: 01/10/18 Time of Evaluation: 10:10 - Subjective Subjective: patient seen and examined Cough and breathing much improved Objective - Vital Signs/Intake and Output Vital Signs (last 24 hours): Temp Pulse Resp BP Pulse Ox 97.2 F L 99 H 209 H 117/73 98 01/10/18 15:19 01/10/18 15:19 01/10/18 15:19 01/10/18 15:19 01/10/18 08:37 Intake and Output: 01/10/18 01/10/18 06:59 18:59 Intake Total 400 730 Output Total 450 Balance -50 730 - Medications Medications: Current Medications Albuterol/Ipratropium (Duoneb 3 Mg/0.5 Mg (3 Ml) Ud) 3 ml INH RQ6 [facility] Last Admin: 01/10/18 14:21 Dose: 3 ml Azithromycin (Zithromax) 500 mg PO DAILY [facility] PRN Reason: Protocol Last Admin: 01/10/18 10:38 Dose: 500 mg Diazepam (Valium) 5 mg PO HS PRN PRN Reason: Sedation Ceftriaxone Sodium (Rocephin Iv 1 Gm Duplex) 50 mls @ 100 mls/hr IVPB Q24H [facility] PRN Reason: Protocol Last Admin: 01/10/18 12:30 Dose: 100 mls/hr Levothyroxine Sodium (Synthroid) 75 mcg PO DAILY@0630 [facility] Last Admin: 01/10/18 06:00 Dose: 75 mcg Losartan Potassium (Cozaar) 50 mg PO DAILY [facility] Metoprolol Succinate (Toprol Xl) 50 mg PO DAILY [facility] Last Admin: 01/10/18 10:38 Dose: 50 mg - Labs Labs: 01/10/18 07:00 01/10/18 07:00 PT 33.5 SECONDS (9.7-12.2) H* D 01/10/18 07:00 INR 3.1 D 01/10/18 07:00 APTT 46 SECONDS (21-34) H 01/08/18 04:49 - Head Exam Head Exam: ATRAUMATIC, NORMOCEPHALIC - Eye Exam Eye Exam: Normal appearance - ENT Exam ENT Exam: Mucous Membranes Moist - Respiratory Exam Respiratory Exam: Clear to Ausculation Bilateral - Cardiovascular Exam Cardiovascular Exam: REGULAR RHYTHM - GI/Abdominal Exam GI & Abdominal Exam: Soft Assessment and Plan (1) Pneumonia Assessment & Plan: continue antibiotics Followup chest x-ray Clinically improving Status: Acute (2) COPD exacerbation Status: Acute
--- NOTE | 2018-01-10 18:51 | US ---
Date of service: 01/10/2018 HISTORY: Abnormal LFTs COMPARISON: None. TECHNIQUE: Sonographic evaluation of the abdomen. FINDINGS: LIVER: Measures 13.2 cm. Hepatopedal blood flow. Fatty infiltration manifest ultrasonographically as increased echogenicity of the liver parenchyma. No mass. No intrahepatic bile duct dilatation. GALLBLADDER: Unremarkable. No gallstones. COMMON BILE DUCT: Measures 6.5 mm. No stones. No dilatation. PANCREAS: Unremarkable as visualized. No mass. No ductal dilatation. RIGHT KIDNEY: Measures 3.8 x 10.7cm. Normal echogenicity. No calculus, mass, or hydronephrosis. LEFT KIDNEY: Measures 3.8 x 8.7cm. Normal echogenicity. No calculus, mass, or hydronephrosis. SPLEEN: Normal in size and contour. No mass. AORTA: No aneurysmal dilatation. IVC: Unremarkable. OTHER FINDINGS: None. IMPRESSION: Hepatic steatosis, mild without focal hepatic abnormality. Otherwise unremarkable study
[2018-01-10 19:56] LABS: ABG ALLEN TEST POS; ARTERIAL BLOOD GAS HCO3 25.1 mmol/L (21-28); ARTERIAL BLOOD GAS HEMOGLOBIN 13.3 g/dL (11.7-17.4); ARTERIAL BLOOD GAS O2 SAT 84.5 % (95-98); ARTERIAL BLOOD GAS PCO2 39 mm/Hg (35-45); ARTERIAL BLOOD GAS PH 7.42 (7.35-7.45); ARTERIAL BLOOD GAS PO2 43 mm/Hg (80-100); ARTERIAL BLOOD GAS TCO2 26.5 mmol/L (22-28)
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
[2018-01-10 21:34] LABS: SQUAMOUS EPITHIAL 9 /hpf (0-5); URINE BACTERIA RARE (<OCC); URINE BILIRUBIN NEGATIVE (NEGATIVE); URINE BLOOD NEGATIVE (NEGATIVE); URINE CLARITY Hazy (Clear); URINE COLOR Yellow (YELLOW); URINE GLUCOSE (UA) NORMAL (Normal); URINE LEUKOCYTE ESTERASE NEG Leu/uL (Negative); URINE PROTEIN NEGATIVE (NEGATIVE); URINE UROBILINOGEN NORMAL mg/dL (0.2-1.0)
[2018-01-11] MEDS: Albuterol-Ipratrop 3 mg / 0.5 (3 ml) UD INH SCH ×4 (02:57→19:32)
[2018-01-11] MEDS: Levothyroxine 75 MCG TAB PO SCH (05:42)
[2018-01-11 07:35] LABS: INR 1.9
[2018-01-11 07:36] LABS: BASO % 0.7 % (0.0-2.0); EOS # 0.7 K/uL (0.0-0.7); EOS % 8.9 % (0.0-4.0); MEAN CELL VOLUME 87.1 fL (81.0-99.0); MEAN CORPUSCULAR HEMOGLOBIN 30.3 pg (27.0-31.0); MEAN CORPUSCULAR HGB CONC 34.7 g/dL (33.0-37.0); MEAN PLATELET VOLUME 8.9 fL (7.2-11.7); MONO # 0.9 K/uL (0.0-0.8); MONO % 12.6 % (0.0-10.0); NEUT # 4.8 K/uL (1.8-7.0); NEUT % 64.8 % (50.0-75.0); NRBC % 0.1 % (0.0-2.0); RBC 3.98 Mil/uL (3.80-5.20); WHITE BLOOD COUNT 7.5 K/uL (4.8-10.8)
[2018-01-11 07:45] LABS: PROTHROMBIN TIME 21.2 SECONDS (9.7-12.2)
--- NOTE | 2018-01-11 08:14 | RAD ---
Date of service: 01/11/2018 PROCEDURE: CHEST RADIOGRAPH, 1 VIEW HISTORY: f/u pneumonia COMPARISON: 01/08/2018. FINDINGS: LUNGS: The lungs are hyperinflated and there is peribronchial thickening with chronic changes in both lungs. There is interval improvement in right lower lobe airspace disease. PLEURA: No pneumothorax or pleural fluid seen. CARDIOVASCULAR: Normal. OSSEOUS STRUCTURES: No significant abnormalities. VISUALIZED UPPER ABDOMEN: Normal. OTHER FINDINGS: None. IMPRESSION: Improving right lower lobe pneumonia. Background of COPD.
[2018-01-11 08:50] LABS: ALBUMIN 3.5 g/dL (3.5-5.0); ALT/SGPT 61 U/L (9-52); AST/SGOT 46 U/L (14-36); BLOOD UREA NITROGEN 21 mg/dL (7-17); CALCIUM 9.3 mg/dl (8.6-10.4); GFR AFRICAN-AMERICAN > 60; GFR NON-AFRICAN AMERICAN > 60
[2018-01-11 09:01] LABS: B-TYPE NATRIURETIC PEPTIDE 698 pg/mL (0-900)
--- NOTE | 2018-01-11 10:03 | CP.PCM.PN ---
Subjective - Date & Time of Evaluation Date of Evaluation: 01/11/18 Time of Evaluation: 08:00 - Subjective Subjective: Patient seen and examined Still complaining of dyspnea on exertion Improving pneumonia on chest x-ray ABG consistent with hypoxemia Afebrile Objective - Vital Signs/Intake and Output Vital Signs (last 24 hours): Temp Pulse Resp BP Pulse Ox 97.5 F L 112 H 20 107/71 98 01/11/18 08:19 01/11/18 09:14 01/11/18 08:19 01/11/18 09:14 01/11/18 08:19 Intake and Output: 01/11/18 01/11/18 06:59 18:59 Intake Total 200 Balance 200 - Medications Medications: Current Medications Albuterol/Ipratropium (Duoneb 3 Mg/0.5 Mg (3 Ml) Ud) 3 ml INH RQ6 [facility] Last Admin: 01/11/18 08:12 Dose: 3 ml Azithromycin (Zithromax) 500 mg PO DAILY [facility] PRN Reason: Protocol Last Admin: 01/11/18 09:16 Dose: 500 mg Diazepam (Valium) 5 mg PO HS PRN PRN Reason: Sedation Last Admin: 01/10/18 22:10 Dose: 5 mg Diltiazem HCl (Cardizem) 60 mg PO QID [facility] Last Admin: 01/11/18 09:15 Dose: Not Given Ceftriaxone Sodium (Rocephin Iv 1 Gm Duplex) 50 mls @ 100 mls/hr IVPB Q24H [facility] PRN Reason: Protocol Last Admin: 01/10/18 12:30 Dose: 100 mls/hr Levothyroxine Sodium (Synthroid) 75 mcg PO DAILY@0630 [facility] Last Admin: 01/11/18 05:42 Dose: 75 mcg Losartan Potassium (Cozaar) 50 mg PO DAILY [facility] Last Admin: 01/11/18 09:15 Dose: Not Given - Labs Labs: 01/11/18 07:21 01/11/18 07:21 PT 21.2 SECONDS (9.7-12.2) H D 01/11/18 07:21 INR 1.9 D 01/11/18 07:21 APTT 46 SECONDS (21-34) H 01/08/18 04:49 - Head Exam Head Exam: ATRAUMATIC, NORMOCEPHALIC - ENT Exam ENT Exam: Mucous Membranes Moist - Neck Exam Neck Exam: Normal Inspection - Respiratory Exam Respiratory Exam: Rales - Cardiovascular Exam Cardiovascular Exam: Irregular Rhythm - GI/Abdominal Exam GI & Abdominal Exam: Soft, Normal Bowel Sounds Assessment and Plan (1) Pneumonia Assessment & Plan: Pneumonia improving Continue antibiotics PO2 43 on room air, patient needs and will benefit from home oxygen Continue nebulizer treatment Physical therapy Status: Acute (2) COPD exacerbation Status: Acute
[2018-01-11] MEDS: cefTRIAXone IV 1 gm in Dextros 50 ML IVPB SCH (11:41)
--- NOTE | 2018-01-11 12:21 | CARD ---
APPROVED REPORT Date of service: 01/10/2018 EKG Measurement Heart [id number] <Conclusion> Atrial flutter with variable AV block Abnormal ECG
--- NOTE | 2018-01-11 18:03 | CP.PCM.PN ---
Subjective - Date & Time of Evaluation Date of Evaluation: 01/11/18 Time of Evaluation: 05:00 - Subjective Subjective: -patient oob looks comfortable but does get short of breath and really gets hypoxemic with exertion -Repeat CXR- pneumonia improving on current antibiotics -Discussed with Dr. Cortez. Started on Cardizem. Atenolol discontinued. To consider ablation in the near future -remains in atrial flutter with varying block. Heart rate much better. =PT/INR back to therapeutic level. Will restart and monitor PT/INR Objective - Vital Signs/Intake and Output Vital Signs (last 24 hours): Temp Pulse Resp BP Pulse Ox 97.5 F L 83 20 113/60 95 01/11/18 15:23 01/11/18 17:19 01/11/18 15:23 01/11/18 15:23 01/11/18 17:19 Intake and Output: 01/11/18 01/11/18 06:59 18:59 Intake Total 200 Balance 200 - Medications Medications: Current Medications Albuterol/Ipratropium (Duoneb 3 Mg/0.5 Mg (3 Ml) Ud) 3 ml INH RQ6 [facility] Last Admin: 01/11/18 13:55 Dose: 3 ml Azithromycin (Zithromax) 500 mg PO DAILY [facility] PRN Reason: Protocol Last Admin: 01/11/18 09:16 Dose: 500 mg Diazepam (Valium) 5 mg PO HS PRN PRN Reason: Sedation Last Admin: 01/10/18 22:10 Dose: 5 mg Diltiazem HCl (Cardizem) 60 mg PO QID [facility] Last Admin: 01/11/18 17:50 Dose: 60 mg Ceftriaxone Sodium (Rocephin Iv 1 Gm Duplex) 50 mls @ 100 mls/hr IVPB Q24H [facility] PRN Reason: Protocol Last Admin: 01/11/18 11:41 Dose: 100 mls/hr Levothyroxine Sodium (Synthroid) 75 mcg PO DAILY@0630 [facility] Last Admin: 01/11/18 05:42 Dose: 75 mcg Losartan Potassium (Cozaar) 50 mg PO DAILY [facility] Last Admin: 01/11/18 09:15 Dose: Not Given Warfarin Sodium (Coumadin) 6 mg PO DAILY@1800 ONE Stop: 01/11/18 18:01 - Labs Labs: 01/11/18 07:21 01/11/18 07:21 PT 21.2 SECONDS (9.7-12.2) H D 01/11/18 07:21 INR 1.9 D 01/11/18 07:21 APTT 46 SECONDS (21-34) H 01/08/18 04:49 - Constitutional Appears: No Acute Distress - Head Exam Head Exam: NORMAL INSPECTION - Eye Exam Eye Exam: Normal appearance - ENT Exam ENT Exam: Normal Exam - Neck Exam Neck Exam: Normal Inspection - Respiratory Exam Respiratory Exam: Clear to Ausculation Bilateral, NORMAL BREATHING PATTERN - Cardiovascular Exam Cardiovascular Exam: REGULAR RHYTHM, +S1, +S2 - GI/Abdominal Exam GI & Abdominal Exam: Soft, Normal Bowel Sounds - Extremities Exam Extremities Exam: Normal Inspection - Neurological Exam Neurological Exam: Alert, Awake, Oriented x3 - Psychiatric Exam Psychiatric exam: Normal Affect, Normal Mood Assessment and Plan (1) Pneumonia Assessment & Plan: repeat CXR- imrovement noted. Continue current antibiotics. Status: Acute (2) Atrial fibrillation and flutter Assessment & Plan: heart rate better controlled on Cardizem Status: Chronic (3) Coagulation defect Assessment & Plan: INR back to therapeutic level. Will restart warfarin. Status: Resolved (4) Hypertension Assessment & Plan: controlled Status: Chronic (5) CHF (congestive heart failure) Assessment & Plan: improved Status: Resolved (6) Hypothyroidism Assessment & Plan: stable Status: Chronic
[2018-01-12] MEDS: Albuterol-Ipratrop 3 mg / 0.5 (3 ml) UD INH SCH ×3 (01:01→20:51)
[2018-01-12] MEDS: Levothyroxine 75 MCG TAB PO SCH (05:52)
[2018-01-12 08:08] LABS: BASO % 0.7 % (0.0-2.0); EOS # 0.6 K/uL (0.0-0.7); EOS % 8.5 % (0.0-4.0); HEMOGLOBIN 11.6 g/dL (11.0-16.0); LYMPH # 1.2 K/uL (1.0-4.3); LYMPH % 15.9 % (20.0-40.0); MEAN CELL VOLUME 87.9 fL (81.0-99.0); MEAN CORPUSCULAR HEMOGLOBIN 30.3 pg (27.0-31.0); MEAN CORPUSCULAR HGB CONC 34.4 g/dL (33.0-37.0); MEAN PLATELET VOLUME 8.7 fL (7.2-11.7); MONO % 12.8 % (0.0-10.0); NEUT # 4.7 K/uL (1.8-7.0); NEUT % 62.1 % (50.0-75.0); NRBC % 0.1 % (0.0-2.0); RBC 3.84 Mil/uL (3.80-5.20); RED CELL DISTRIBUTION WIDTH 16.6 % (11.5-14.5); WHITE BLOOD COUNT 7.5 K/uL (4.8-10.8)
[2018-01-12 08:12] LABS: INR 1.4
[2018-01-12 08:22] LABS: PROTHROMBIN TIME 15.8 SECONDS (9.7-12.2)
[2018-01-12 08:40] LABS: ALB/GLOB RATIO 1.1 (1.0-2.1); ALBUMIN 3.5 g/dL (3.5-5.0); ALT/SGPT 61 U/L (9-52); AST/SGOT 38 U/L (14-36); BLOOD UREA NITROGEN 21 mg/dL (7-17); CALCIUM 9.1 mg/dl (8.6-10.4); GFR AFRICAN-AMERICAN > 60; GFR NON-AFRICAN AMERICAN > 60
--- NOTE | 2018-01-12 09:33 | CP.PCM.PN ---
Subjective - Date & Time of Evaluation Date of Evaluation: 01/12/18 Time of Evaluation: 09:00 - Subjective Subjective: Patient seen and examined Complaining of dyspnea on exertion Afebrile Chest x-ray showed resolving infiltrate Awaiting for home oxygen Continue antibiotics Continue nebulizer treatment Rehabilitation/physical therapy Objective - Vital Signs/Intake and Output Vital Signs (last 24 hours): Temp Pulse Resp BP Pulse Ox 97.5 F L 70 20 136/62 97 01/12/18 07:30 01/12/18 08:58 01/12/18 07:30 01/12/18 08:58 01/12/18 07:30 Intake and Output: 01/12/18 01/12/18 06:59 18:59 Intake Total 220 Balance 220 - Medications Medications: Current Medications Albuterol/Ipratropium (Duoneb 3 Mg/0.5 Mg (3 Ml) Ud) 3 ml INH RQ6 [facility] Last Admin: 01/12/18 07:49 Dose: 3 ml Azithromycin (Zithromax) 500 mg PO DAILY [facility] PRN Reason: Protocol Last Admin: 01/12/18 09:00 Dose: 500 mg Diazepam (Valium) 5 mg PO HS PRN PRN Reason: Sedation Last Admin: 01/10/18 22:10 Dose: 5 mg Diltiazem HCl (Cardizem) 60 mg PO QID [facility] Last Admin: 01/12/18 09:00 Dose: 60 mg Ceftriaxone Sodium (Rocephin Iv 1 Gm Duplex) 50 mls @ 100 mls/hr IVPB Q24H [facility] PRN Reason: Protocol Last Admin: 01/11/18 11:41 Dose: 100 mls/hr Levothyroxine Sodium (Synthroid) 75 mcg PO DAILY@0630 [facility] Last Admin: 01/12/18 05:52 Dose: 75 mcg Losartan Potassium (Cozaar) 50 mg PO DAILY [facility] Last Admin: 01/12/18 09:00 Dose: 50 mg - Labs Labs: 01/12/18 07:53 01/12/18 07:53 PT 15.8 SECONDS (9.7-12.2) H D 01/12/18 07:53 INR 1.4 D 01/12/18 07:53 APTT 46 SECONDS (21-34) H 01/08/18 04:49 Assessment and Plan (1) Pneumonia Status: Acute (2) COPD exacerbation Status: Acute
[2018-01-12] MEDS: cefTRIAXone IV 1 gm in Dextros 50 ML IVPB SCH (12:20)
[2018-01-12] MEDS ORDERED: Aluminum Hydroxide/Magnesium Hydroxide Susp (30 mL) PO STA (22:55)
[2018-01-13] MEDS: Albuterol-Ipratrop 3 mg / 0.5 (3 ml) UD INH SCH ×4 (01:15→20:12)
[2018-01-13] MEDS: Levothyroxine 75 MCG TAB PO SCH (06:06)
[2018-01-13 08:23] LABS: INR 1.6; PROTHROMBIN TIME 17.2 SECONDS (9.7-12.2)
[2018-01-13] MEDS: cefTRIAXone IV 1 gm in Dextros 50 ML IVPB SCH (11:16)
--- NOTE | 2018-01-13 20:42 | CP.PCM.PN ---
Subjective - Date & Time of Evaluation Date of Evaluation: 01/13/18 Time of Evaluation: 20:41 - Subjective Subjective: Pt seen and examined at bedside. Knows she needs to get ablation of ectopic foci causing afib/aflutter, but has refused it for many years. Pt now increasingly developing shortness of breath with mild exertion. Had spoken with electrophysiology and cardiology, and explained the pathology of afib that causes hypoxemia. Objective - Vital Signs/Intake and Output Vital Signs (last 24 hours): Temp Pulse Resp BP Pulse Ox 97.9 F 69 18 112/65 97 01/13/18 15:00 01/13/18 19:48 01/13/18 15:00 01/13/18 18:00 01/13/18 18:00 Intake and Output: 01/13/18 01/14/18 18:59 06:59 Intake Total 300 200 Balance 300 200 - Medications Medications: Current Medications Albuterol/Ipratropium (Duoneb 3 Mg/0.5 Mg (3 Ml) Ud) 3 ml INH RQ6 [facility] Last Admin: 01/13/18 20:12 Dose: 3 ml Diazepam (Valium) 5 mg PO HS PRN PRN Reason: Sedation Last Admin: 01/10/18 22:10 Dose: 5 mg Diltiazem HCl (Cardizem) 60 mg PO QID [facility] Last Admin: 01/13/18 17:13 Dose: 60 mg Levothyroxine Sodium (Synthroid) 75 mcg PO DAILY@0630 [facility] Last Admin: 01/13/18 06:06 Dose: 75 mcg Losartan Potassium (Cozaar) 50 mg PO DAILY [facility] Last Admin: 01/13/18 09:02 Dose: 50 mg - Labs Labs: 01/12/18 07:53 01/12/18 07:53 PT 17.2 SECONDS (9.7-12.2) H 01/13/18 08:10 INR 1.6 01/13/18 08:10 APTT 46 SECONDS (21-34) H 01/08/18 04:49
[2018-01-14] MEDS: Albuterol-Ipratrop 3 mg / 0.5 (3 ml) UD INH SCH ×4 (01:29→19:40)
[2018-01-14] MEDS: Levothyroxine 75 MCG TAB PO SCH (05:57)
[2018-01-14 06:21] LABS: INR 2.1; PROTHROMBIN TIME 23.4 SECONDS (9.7-12.2)
[2018-01-14 06:45] LABS: ALBUMIN 3.5 g/dL (3.5-5.0); ALT/SGPT 65 U/L (9-52); AST/SGOT 43 U/L (14-36); BLOOD UREA NITROGEN 25 mg/dL (7-17); CALCIUM 9.4 mg/dl (8.6-10.4); GFR AFRICAN-AMERICAN 52; GFR NON-AFRICAN AMERICAN 43
[2018-01-14 06:48] LABS: FREE T4 1.37 ng/dL (0.78-2.19)
--- NOTE | 2018-01-14 13:05 | CP.PCM.DIS ---
Provider - Provider Date of Admission: 01/08/18 07:45 Attending physician: Della Restrepo MD Primary care physician: Edwin Restrepo Consults: Dr. Dc, Dr Rodriguez Time Spent in preparation of Discharge (in minutes): 45 Diagnosis - Discharge Diagnosis (1) Pneumonia Status: Resolved Priority: Medium Comment: Condition resolved. Received Azithromycin and rocephin. CXR showed significant iprovement. (2) Atrial fibrillation and flutter Status: Chronic Priority: High Comment: Atrial flutter/fib with good rate control on current medication- Cardizem. Dr Rodriguez to follow patient outpatient for ablation and further nanagement of arrhythmia. (3) Coagulation defect Status: Resolved Priority: High Comment: Patient on Warfarin 6 mg daily at home with stable PT/INR until this admission. PT/INR prolonged on admission which could have been due to Macrodantin that was prescribed to her from urgent care for UTI. (4) Hypertension Status: Chronic Priority: Medium Comment: controlled on current meds. (5) CHF (congestive heart failure) Status: Resolved Priority: Medium Comment: Conrolled on current meds. (6) Hypothyroidism Status: Chronic Priority: Medium Comment: Stable on current med. Hospital Course - Lab Results Lab Results: Micro Results 01/08/18 12:42 Urine,Clean Catch Urine Culture - Final No Growth (<1,000 CFU/ML) Most Recent Lab Values WBC 7.5 K/uL (4.8-10.8) 01/12/18 07:53 RBC 3.84 Mil/uL (3.80-5.20) 01/12/18 07:53 Hgb 11.6 g/dL (11.0-16.0) 01/12/18 07:53 Hct 33.7 % (34.0-47.0) L 01/12/18 07:53 MCV 87.9 fL (81.0-99.0) 01/12/18 07:53 MCH 30.3 pg (27.0-31.0) 01/12/18 07:53 MCHC 34.4 g/dL (33.0-37.0) 01/12/18 07:53 RDW 16.6 % (11.5-14.5) H 01/12/18 07:53 Plt Count 159 K/uL (130-400) 01/12/18 07:53 MPV 8.7 fL (7.2-11.7) 01/12/18 07:53 Neut % (Auto) 62.1 % (50.0-75.0) 01/12/18 07:53 Lymph % (Auto) 15.9 % (20.0-40.0) L 01/12/18 07:53 [place] % (Auto) 12.8 % (0.0-10.0) H 01/12/18 07:53 Eos % (Auto) 8.5 % (0.0-4.0) H 01/12/18 07:53 Baso % (Auto) 0.7 % (0.0-2.0) 01/12/18 07:53 Neut # (Auto) 4.7 K/uL (1.8-7.0) 01/12/18 07:53 Lymph # (Auto) 1.2 K/uL (1.0-4.3) 01/12/18 07:53 [place] # (Auto) 1.0 K/uL (0.0-0.8) H 01/12/18 07:53 Eos # (Auto) 0.6 K/uL (0.0-0.7) 01/12/18 07:53 Baso # (Auto) 0.0 K/uL (0.0-0.2) 01/12/18 07:53 Neutrophils % (Manual) 82 % (50-75) H 01/09/18 06:25 Band Neutrophils % 1 % (0-2) 01/09/18 06:25 Lymphocytes % (Manual) 8 % (20-40) L 01/09/18 06:25 Monocytes % (Manual) 9 % (0-10) 01/09/18 06:25 Toxic Granulation Present 01/09/18 06:25 Platelet Estimate Normal (NORMAL) 01/09/18 06:25 PT 23.4 SECONDS (9.7-12.2) H D 01/14/18 06:00 INR 2.1 D 01/14/18 06:00 APTT 46 SECONDS (21-34) H 01/08/18 04:49 Puncture Site Rra 01/10/18 19:50 pCO2 39 mm/Hg (35-45) 01/10/18 19:50 pO2 43 mm/Hg (80-100) L* 01/10/18 19:50 HCO3 25.1 mmol/L (21-28) 01/10/18 19:50 ABG pH 7.42 (7.35-7.45) 01/10/18 19:50 ABG Total CO2 26.5 mmol/L (22-28) 01/10/18 19:50 ABG O2 Saturation 84.5 % (95-98) L 01/10/18 19:50 ABG Base Excess 0.8 mmol/L (-2.0-3.0) 01/10/18 19:50 ABG Hemoglobin 13.3 g/dL (11.7-17.4) 01/10/18 19:50 ABG Carboxyhemoglobin 2.6 % (0.5-1.5) H 01/10/18 19:50 POC ABG HHb (Measured) 14.9 % (0.0-5.0) H 01/10/18 19:50 ABG Methemoglobin 1.2 % (0.0-3.0) 01/10/18 19:50 Michael Test Pos 01/10/18 19:50 ABG Potassium 3.2 mmol/L (3.6-5.2) L 01/08/18 06:15 A-a O2 Difference 58.0 mm/Hg 01/10/18 19:50 Respiratory Index 1.3 01/10/18 19:50 Hgb O2 Saturation 81.4 % (95.0-98.0) L 01/10/18 19:50 Sodium 139.0 mmol/l (132-148) 01/08/18 06:15 Chloride 108.0 mmol/L (98-107) H 01/08/18 06:15 Glucose 120 mg/dl (65-105) H 01/08/18 06:15 Lactate 0.9 mmol/L (0.7-2.1) 01/08/18 06:15 Vent Mode Bipap 01/08/18 06:15 FiO2 21.0 % 01/10/18 19:50 Inspiratory BiPAP 10 01/08/18 06:15 Expiratory BiPAP 5 01/08/18 06:15 Crit Value Called To Dr glover 01/10/18 19:50 Crit Value Called By Isiah nunez 01/10/18 19:50 Crit Value Read Back Y 01/10/18 19:50 Blood Gas Notified Time 195501/10/18 19:50 Sodium 140 mmol/L (132-148) 01/14/18 06:00 Potassium 5.3 mmol/L (3.6-5.2) H 01/14/18 06:00 Chloride 100 mmol/L (98-107) 01/14/18 06:00 Carbon Dioxide 31 mmol/L (22-30) H 01/14/18 06:00 Anion Gap 14 (10-20) 01/14/18 06:00 BUN 25 mg/dL (7-17) H 01/14/18 06:00 Creatinine 1.2 mg/dL (0.7-1.2) 01/14/18 06:00 Est GFR ( Amer) 52 01/14/18 06:00 Est GFR (Non-Af Amer) 43 01/14/18 06:00 Random Glucose 113 mg/dL (65-105) H 01/14/18 06:00 Hemoglobin A1c 5.3 % (4.2-6.5) 01/14/18 06:00 Calcium 9.4 mg/dl (8.6-10.4) 01/14/18 06:00 Total Bilirubin 0.5 mg/dL (0.2-1.3) 01/14/18 06:00 AST 43 U/L (14-36) H 01/14/18 06:00 ALT 65 U/L (9-52) H 01/14/18 06:00 Alkaline Phosphatase 80 U/L (38-126) 01/14/18 06:00 Total Creatine Kinase 53 U/L (30-135) 01/08/18 20:02 CK-MB (Mass) 0.51 ng/mL (0.0-3.38) 01/08/18 20:02 Troponin I < 0.0120 ng/mL (0.00-0.120) 01/08/18 20:02 NT-Pro-B Natriuret Pep 698 pg/mL (0-900) 01/11/18 07:21 Total Protein 6.9 g/dL (6.3-8.3) 01/14/18 06:00 Albumin 3.5 g/dL (3.5-5.0) 01/14/18 06:00 Globulin 3.4 gm/dL (2.2-3.9) 01/14/18 06:00 Albumin/Globulin Ratio 1.0 (1.0-2.1) 01/14/18 06:00 Vitamin B12 > 1000 pg/mL (239-931) H 01/14/18 06:00 Free T4 1.37 ng/dL (0.78-2.19) 01/14/18 06:00 TSH 3rd Generation 0.82 mIU/L (0.46-4.68) 01/14/18 06:00 Arterial Blood Potassium 3.2 mmol/L (3.6-5.2) L 01/08/18 06:15 Urine Color Yellow (YELLOW) 01/10/18 21:23 Urine Clarity Hazy (Clear) 01/10/18 21:23 Urine pH 5.0 (5.0-8.0) 01/10/18 21:23 Ur Specific [place] 1.014 (1.003-1.030) 01/10/18 21:23 Urine Protein Negative mg/dL (NEGATIVE) 01/10/18 21:23 Urine Glucose (UA) Normal mg/dL (Normal) 01/10/18 21:23 Urine Ketones Negative mg/dL (NEGATIVE) 01/10/18 21:23 Urine Blood Negative (NEGATIVE) 01/10/18 21:23 Urine Nitrate Negative (NEGATIVE) 01/10/18 21:23 Urine Bilirubin Negative (NEGATIVE) 01/10/18 21:23 Urine Urobilinogen Normal mg/dL (0.2-1.0) 01/10/18 21:23 Ur Leukocyte Esterase Neg [place]/uL (Negative) 01/10/18 21:23 Urine WBC (Auto) 3 /hpf (0-5) 01/10/18 21:23 Urine RBC (Auto) 1 /hpf (0-3) 01/10/18 21:23 Ur Squamous Epith Cells 9 /hpf (0-5) H 01/10/18 21:23 Urine Bacteria Rare (<OCC) 01/10/18 21:23 Hyaline Casts 3-5 /lpf (0-2) H 01/10/18 21:23 Ur L.pneumophila Ag Negative (NEGATIVE) 01/08/18 16:36 Mycoplasma pneumon IgM Negative (NEGATIVE) 01/08/18 16:36 - Hospital Course Hospital Course: This is an 82 y/o female with history of HTN, atrial flutter/fibrillation who was admitted because of shortness of breath. She was brought to the ER and was found to have an infiltrate int he R base of the lungs as well changes consistent with CHF. She was admitted to telemetry. She was given IV antibiotics , nebulizer treatments and pulmonary consultation was obtained. She was also started back on all her regular meds. She also had atrial flutter noted on the monitor and EP consult was obtained. She was started on Cardizem with good control of the heart rate. She was also advised to go for other tests and whatever procedures need to be done to which she is more agreeable now once she is discharged from the [facility] She did well and she was discharged to [facility] for further recuperation. She will be followed up in the office after discharge from [facility] Discharge Exam - Head Exam Head Exam: NORMAL INSPECTION - Eye Exam Eye Exam: Normal appearance, PERRL - ENT Exam ENT Exam: Normal Exam - Neck Exam Neck exam: Normal Inspection - Respiratory Exam Respiratory Exam: Clear to PA & Lateral, NORMAL BREATHING PATTERN - Cardiovascular Exam Cardiovascular Exam: REGULAR RHYTHM, +S1, +S2 - GI/Abdominal Exam GI & Abdominal Exam: Normal Bowel Sounds, Soft - Extremities Exam Extremities exam: normal inspection - Neurological Exam Neurological exam: Alert, Oriented x3 Discharge Plan - Follow Up Plan Condition: GUARDED Disposition: REHAB FACILITY/REHAB UNIT Instructions: Atrial Fibrillation (DC), Heart Failure, Adult (DC), High Blood Pressure (DC), Vitamin K Diet, Pneumonia, Adult (DC), Chest Pain (DC), Hypothyroidism (Underactive Thyroid) (DC), Exacerbation of COPD (DC), Anti- Clotting Medicines: Warfarin (Coumadin), Warfarin, Going Home on Blood Thinners Additional Instructions: Monitor PT/INR on current dose of warfarin. Follow up in the office with Dr. Restrepo after discharge from [facility]. Follow up home O2 on home discharge. . Referrals: Eldon Dc MD [Staff Provider] - Della Restrepo MD [Staff Provider] - Terrell Rodriguez MD [Medical Doctor] -
--- NOTE | 2018-01-14 13:27 | CP.PCM.PN ---
Subjective - Date & Time of Evaluation Date of Evaluation: 01/14/18 Time of Evaluation: 10:00 - Subjective Subjective: patient seen and examined Breathing and cough much improved Afebrile For transfer to rehabilitation Home oxygen Continue antibiotics and nebulizer Follow up in the office Objective - Vital Signs/Intake and Output Vital Signs (last 24 hours): Temp Pulse Resp BP Pulse Ox 98.2 F 105 H 18 133/79 97 01/14/18 07:00 01/14/18 13:02 01/14/18 07:00 01/14/18 13:02 01/14/18 07:00 Intake and Output: 01/14/18 01/14/18 06:59 18:59 Intake Total 300 Balance 300 - Medications Medications: Current Medications Albuterol/Ipratropium (Duoneb 3 Mg/0.5 Mg (3 Ml) Ud) 3 ml INH RQ6 [facility] Last Admin: 01/14/18 07:45 Dose: 3 ml Diazepam (Valium) 5 mg PO HS PRN PRN Reason: Sedation Last Admin: 01/10/18 22:10 Dose: 5 mg Diltiazem HCl (Cardizem) 60 mg PO QID [facility] Last Admin: 01/14/18 13:04 Dose: 60 mg Levothyroxine Sodium (Synthroid) 75 mcg PO DAILY@0630 [facility] Last Admin: 01/14/18 05:57 Dose: 75 mcg Losartan Potassium (Cozaar) 50 mg PO DAILY [facility] Last Admin: 01/14/18 10:48 Dose: Not Given - Labs Labs: 01/12/18 07:53 01/14/18 06:00 PT 23.4 SECONDS (9.7-12.2) H D 01/14/18 06:00 INR 2.1 D 01/14/18 06:00 APTT 46 SECONDS (21-34) H 01/08/18 04:49 Assessment and Plan (1) Pneumonia Status: Resolved (2) COPD exacerbation Status: Acute
[2018-01-14 16:04] VITALS: BP 112/62; PULSE 88; RESP 20; TEMP 97.7; O2SAT 99
== END 2018-01-14 20:40 | DRG 193 ==
LOC: C.ER 04:24 → C.9E 07:45 → C.5S 10:39
PROVIDERS: ADMIT Internal Medicine Cardiovascular Disease; ATTEND Internal Medicine Cardiovascular Disease
DX: J18.9 Pneumonia, unspecified organism (principal); I50.33 Acute on chronic diastolic (congestive) heart failure; J44.0 Chronic obstructive pulmonary disease with (acute) lower respiratory infection; J44.1 Chronic obstructive pulmonary disease with (acute) exacerbation; I48.92 Unspecified atrial flutter; N39.0 Urinary tract infection, site not specified; D68.9 Coagulation defect, unspecified; R09.02 Hypoxemia; I11.0 Hypertensive heart disease with heart failure; I48.2 Chronic atrial fibrillation; E03.9 Hypothyroidism, unspecified; Z79.01 Long term (current) use of anticoagulants; Z90.710 Acquired absence of both cervix and uterus

== ENCOUNTER 2018-09-20 09:27 | Outpatient (CLI) | payer MEDICARE | END 2018-09-20 09:28 | disposition home or self-care (01) | LOC: C.CARD 09:27 | DX: I10 Essential (primary) hypertension (principal); I48.2 Chronic atrial fibrillation; E78.2 Mixed hyperlipidemia; J44.9 Chronic obstructive pulmonary disease, unspecified; E55.9 Vitamin D deficiency, unspecified; R06.02 Shortness of breath ==

== ENCOUNTER 2018-09-23 12:44 | Outpatient (CLI) | payer MEDICARE | END 2018-09-23 12:45 | disposition home or self-care (01) | LOC: C.CTH 12:44 | DX: J84.112 Idiopathic pulmonary fibrosis (principal); J44.9 Chronic obstructive pulmonary disease, unspecified ==

== ENCOUNTER 2018-10-08 14:11 | Outpatient (CLI) | payer MEDICARE | END 2018-10-08 14:12 | disposition home or self-care (01) | LOC: C.LAB 14:11 | DX: I10 Essential (primary) hypertension (principal); E78.2 Mixed hyperlipidemia; I48.2 Chronic atrial fibrillation; J44.9 Chronic obstructive pulmonary disease, unspecified; E55.9 Vitamin D deficiency, unspecified; R06.02 Shortness of breath ==